=== PATIENT | female | born 2000 ===

== ENCOUNTER 2022-07-27 15:39 | Outpatient (CLI) | payer OTHER, SELFPAY ==
[2022-07-27 22:11] LABS: Cholesterol* 185 mg/dL (90-199)
== END 2022-07-27 15:40 | disposition home or self-care (01) ==
LOC: LKVREF 15:42
PROVIDERS: PCP Family Medicine; Visit Provider Family Medicine
DX: Z00.00 Encounter for general adult medical examination without abnormal findings (principal); J35.8 Other chronic diseases of tonsils and adenoids
CPT/HCPCS: 82465

== ENCOUNTER 2023-03-19 14:06 | Outpatient (CLI) | payer OTHER, SELFPAY ==
[2023-03-19 22:58] LABS: Chlamydia DNA Amplified* NOT DETECTED (No Detected); GC DNA Amplified* NOT DETECTED (No Detected)
== END 2023-03-19 14:07 | disposition home or self-care (01) ==
LOC: LKVREF 14:09
PROVIDERS: PCP Family Medicine; Visit Provider Nurse Practitioner Family
DX: N89.8 Other specified noninflammatory disorders of vagina (principal)
CPT/HCPCS: 87086; 87491; 87591

== ENCOUNTER 2023-07-17 09:40 | Outpatient (CLI) | payer OTHER, SELFPAY | END 2023-07-17 09:41 | disposition home or self-care (01) | PROVIDERS: PCP Family Medicine; Visit Provider Advanced Practice Midwife | DX: Z11.3 Encounter for screening for infections with a predominantly sexual mode of transmission (principal) | CPT/HCPCS: 86592; 86703; 86803; 87340 ==